=== PATIENT | female | born 1965 | race Caucasian/White ===

== ENCOUNTER → 2017-03-03 | Outpatient (CLI) | payer SELFPAY ==
[~2017-03-03] MED LIST: ALPR-236 PO; ATEN-39 PO; AZIT250T PO; BENZ100C97 PO; FISH1CAP29 PO; LISI-114 PO; MAGN250T27 PO; MELO-267 PO; PARO20TA43 PO; POTA1TAB11 PO; TRAM-277 PO
--- NOTE | 2017-03-03 15:35 | DI ---
Indication: ITS.REASON: R51 GOODEN; M54.2 NECK PAIN; I10 HTN PROCEDURE: US CAROTID DOPP COMPLETE: TECHNIQUE: Grayscale, color and duplex Doppler imaging was performed of the carotid systems bilaterally. Velocities in cm/sec - validated velocity measurements with angiographic measurements, velocity criteria are extrapolated from diameter data as defined by the Society of Radiologists in Ultrasound Consensus Conference Radiology 2003; 229;340-346. RIGHT: PSV ICA 92 EDV ICA 35 PSV CCA 116 EDV CCA 30 SVR 0.70 PSV ECA 78 ICA Diameter reduction 0% (<0.8)% LEFT: PSV ICA 60 EDV ICA 17 PSV CCA 107 EDV CCA 24 SVR 0.60 PSV ECA 83 ICA Diameter reduction 0% (<0.8)% The right vertebral artery is patent with cephalic flow. The left vertebral artery is patent with cephalic flow. IMPRESSION: No hemodynamically significant carotid stenosis. .
== END ==
LOC: IMA 14:19
PROVIDERS: ATTEND Physician Assistant
DX: R51 Headache (principal); I10 Essential (primary) hypertension; M54.2 Cervicalgia